=== PATIENT | female | born 1995 | race Caucasian/White ===

== ENCOUNTER → 2018-01-22 | Outpatient (REF) | payer OTHER | LOC: M SFHCWAGY 15:06 | DX: Z12.4 Encounter for screening for malignant neoplasm of cervix (principal); B37.3 Candidiasis of vulva and vagina ==

== ENCOUNTER 2018-05-05 06:05 | Emergency (ER) | payer BC, OTHER ==
[2018-05-05 08:14] LABS: KETONE, URINE AUTO RFX NEGATIVE (NEGATIVE); LEUKOCYTE ESTERASE UR AUTO RFX NEGATIVE (NEGATIVE); MUCUS, URINE RFX SMALL (NEGATIVE); NITRITE, URINE AUTO RFX NEGATIVE (NEGATIVE); RBC, URINE AUTO RFX 4 /HPF (0-3); SQUAM EPITHELIAL CELL UR AURFX 3 /HPF (0-6); WBC, URINE AUTO RFX 2 /HPF (0-3)
== END 2018-05-05 09:15 | disposition home or self-care (01) ==
LOC: M ED 06:05
DX: N83.202 Unspecified ovarian cyst, left side (principal); Z79.3 Long term (current) use of hormonal contraceptives
CPT/HCPCS: 76856